=== PATIENT | male | born 1945 | race Caucasian/White ===

== ENCOUNTER 2016-05-17 18:14 | Inpatient (IN) ==
--- NOTE | 2016-05-17 18:48 | Emergency Department Note ---
Disposition Clinical Impression: Chest pain, Trigeminy Disposition: Admitted As Inpatient Condition: Good Referrals: [facility],PCP [Primary Care Provider] - Forms: ED Satisfaction Letter Time of Disposition: 19:54 Chest Pain HPI - General Chief Complaint: ED Chest Pain Stated Complaint: Chest pain from [facility], in trigemony Time Seen by Provider: 05/17/16 18:22 Source: patient, family, EMS Limitations: no limitations Vital Signs Reviewed: Yes Nursing Notes Reviewed: Yes - History of Present Illness HPI Narrative: 71-year-old male presents emergency room for chest pain. Patient stated it started this morning around 4 AM. States he was up getting ready for the day when he had this left-sided chest pain. States it felt like a cramp. Worse as the day went on. Lasted about 30 minutes to 1 hour. Had return of his symptoms this afternoon. Went to the [facility]. Since the ER. They gave him a nitroglycerin patch which seemed to help with his chest pain. He has not had a heart evaluation in 20 years. His chest x-ray at the [facility] showed some possible infiltrates specifically in the right lung zones. He denies any pneumonia symptoms. No cough or sputum production. No smoking history. No fevers. Pt complaint: chest pain Onset (ago): hour(s) Time: 15:00 Duration: intermittent Onset: during rest Pain Location: left chest Severity scale (1-10): 2 Quality: tightness Pain Radiation: none Improves with: nothing Worsens with: nothing Associated symptoms: Denies: nausea, vomiting Treatments prior to arrival chest pain: aspirin, nitroglycerin - Related Data Home Medications Medication Instructions Recorded Confirmed Aspirin 81 mg PO Q48H 05/17/16 05/17/16 Finasteride [Proscar] 5 mg PO DAILY 05/17/16 05/17/16 Fluticasone Propionate Nasal 100 mcg NS BID PRN 05/17/16 05/17/16 [Flonase] Ibuprofen [Motrin] 800 mg PO Q8HR PRN 05/17/16 05/17/16 Lactase [Dairy Relief] 3,000 unit PO TIDAC 05/17/16 05/17/16 Omeprazole [PriLOSEC] 20 mg PO BIDAC 05/17/16 05/17/16 Tamsulosin [Flomax] 0.8 mg PO DAILY 05/17/16 05/17/16 Allergies Allergy/AdvReac Type Severity Reaction Status Date / Time acetaminophen Allergy Anaphylaxis Verified 05/17/16 18:17 Diclofenac Allergy Anaphylaxis Verified 05/17/16 18:17 etodolac Allergy Anaphylaxis Verified 05/17/16 18:17 guaifenesin Allergy Anaphylaxis Verified 05/17/16 18:17 Influenza Virus Vaccines Allergy Anaphylaxis Verified 05/17/16 18:17 lovastatin Allergy Anaphylaxis Verified 05/17/16 18:17 morphine Allergy Anaphylaxis Verified 05/17/16 18:17 simvastatin Allergy Anaphylaxis Verified 05/17/16 18:17 trazodone Allergy Anaphylaxis Verified 05/17/16 18:17 nitequil Allergy Anaphylaxis Uncoded 05/17/16 18:17 All systems ED: reviewed and negative except as stated. Constitutional: Reports: as per HPI Eyes: Reports: as per HPI ENT ED: Reports: as per HPI Cardiovascular: Reports: chest pain Respiratory: Reports: as per HPI Gastrointestinal: Reports: as per HPI Genitourinary: Reports: as per HPI Musculoskeletal: Reports: as per HPI Integumentary: Reports: as per HPI Neurological: Reports: as per HPI Psychiatric: Reports: as per HPI Endocrine: Reports: as per HPI Hematological/Lymphatic: Reports: as per HPI Chest Pain PMH - Past Medical History Medical history: Reports: arthritis, COPD, hyperlipidemia, hypertension, other Psychiatric history: Reports: no psych history - Social History Smoking Status: Former smoker Alcohol use: Reports: none Drug use: Reports: none Physical Exam - General Limitations: no limitations General appearance: alert, in no apparent distress - Head Head exam: atraumatic, normocephalic - Chest Chest inspection: Present: normal inspection, symmetric chest wall rise - Respiratory Respiratory exam: Present: normal lung sounds bilaterally. Absent: respiratory distress - Cardiovascular Cardiovascular exam: Present: regular rate, normal rhythm, normal heart sounds - Abdominal Exam Abdominal exam: Present: soft, Non-Tender, normal bowel sounds - Back Exam Back exam: Present: normal inspection - Neurological Exam Neurological exam: Present: alert, oriented X3 - Psychiatric Psychiatric exam: Present: normal affect - Skin Skin exam: Present: warm, dry Course Vital Signs Temperature 98.1 F 05/17/16 18:17 Pulse Rate 82 05/17/16 18:17 Respiratory Rate 18 05/17/16 18:17 Blood Pressure 121/105 05/17/16 18:17 O2 Sat by Pulse Oximetry 95 05/17/16 18:17 Temperature 98.1 F 05/17/16 18:17 Pulse Rate 75 05/17/16 19:29 Respiratory Rate 18 05/17/16 19:29 Blood Pressure 139/92 05/17/16 19:29 O2 Sat by Pulse Oximetry 94 L 05/17/16 19:29 Oxygen Delivery Oxygen Delivery Room Air Chest Pain - MDM Narrative Medical decision making narrative: Patient will need to be admitted. His EKG shows him to be in trigeminy. His nitroglycerin patch seemed to help his symptoms. He has had no previous cardiac workup in many years. [facility] for [facility] on the right side. Chest x-ray in our emergency room as interpreted by radiology as negative. I spoke with the hospitalist who accepted the patient to her service. - Medical Records Medical records reviewed: Yes I reviewed the patient's medical records. - Lab Data Lab results reviewed: Yes I reviewed the patient's lab results. Result diagrams: 05/17/16 19:22 05/17/16 19:22 Lab Results 05/17/16 05/17/16 Range/Units 19:22 19:22 WBC 6.8 (4.3-11.1) K/mcL RBC 5.04 (4.19-5.50) M/mcL Hgb 15.3 (12.9-16.9) g/dL Hct 45.1 (37.5-50.1) % MCV 89.5 (83.0-100.0) fL MCH 30.4 (28.0-33.3) pg MCHC 33.9 (31.6-35.5) g/dL RDW 12.5 (11.5-14.5) % Plt Count 251 (140-400) K/mcL MPV 9.7 (9.4-12.4) fL Immature Gran % 0.3 (0-4) % Seg Neutrophils % 57.8 % Lymphocytes % 32.2 % Monocytes % 7.1 % Eosinophils % 1.9 % Basophils % 0.7 % Neutrophils # 3.9 (1.6-8.9) K/mcL Lymphocytes # 2.2 (0.6-4.6) K/mcL Monocytes # 0.5 (0.0-1.3) K/mcL Eosinophils # 0.1 (0.0-0.6) K/mcL Basophils # 0.1 (0.0-0.2) K/mcL Immature Plt Fraction 3.1 (1.1-6.1) % Sodium 139 (136-145) mEq/L Potassium 3.9 (3.5-4.5) mEq/L Chloride 105 (98-109) mEq/L Carbon Dioxide 21 (19-29) mEq/L BUN 12 (8-26) mg/dL Creatinine 0.77 (0.72-1.25) mg/dL Est GFR ( Amer) > 60 (> 60) Est GFR (Non-Af Amer) > 60 (> 60) BUN/Creatinine Ratio 16 (6-26) Glucose 109 H (70-99) mg/dL Calculated Osmolality 288 (280-300) Calcium 9.5 (8.6-10.8) mg/dL - Radiology Data Radiology results reviewed: Yes I reviewed the patient's radiology results. - EKG Data EKG attestation: Yes I reviewed and interpreted this EKG. EKG shows normal: sinus rhythm (Trigeminy) Rhythm: PVC's (Trigeminy) [place]/QRS: normal
[2016-05-17] MEDS ORDERED: Fluticasone Propionate Nasal 50 MCG/SPRAY BOTTLE NS PRN (19:26)
[2016-05-17] MEDS ORDERED: Mag Hydrox/Al Hydrox/Simeth 30 ML UDC PO PRN (19:27)
[2016-05-17] MEDS ORDERED: Nitroglycerin 0.4 MG TAB.SUBL SL PRN (19:27)
[2016-05-17] MEDS ORDERED: *HR* Metoprolol 5 MG/5 ML VIAL IVP PRN (19:27)
[2016-05-17] MEDS ORDERED: Nicotine 21 MG PATCH.TD24 TD PRN (19:27)
[2016-05-17] MEDS ORDERED: *HR* OxyCODONE Immed Rel 5 MG TABLET PO PRN (19:27)
[2016-05-17] MEDS ORDERED: Pantoprazole 40 MG VIAL IVP STA (19:27)
[2016-05-17] MEDS ORDERED: Ondansetron 4 MG/2 ML VIAL IVP PRN (19:27)
[2016-05-17] MEDS ORDERED: Naloxone 0.4 MG/ML INJ IVP PRN (19:27)
[2016-05-17] MEDS ORDERED: *HR* HYDROmorphone (PF) 1 MG/ML SYRINGE IVP PRN (19:27)
[2016-05-17] MEDS ORDERED: *HR* Enoxaparin 40 MG/0.4 ML SYRINGE SQ STA (19:27)
[2016-05-17] MEDS ORDERED: Aspirin 81 MG TAB.CHEW PO SCH (19:30)
[2016-05-17] MEDS ORDERED: 0.9 % Sodium Chloride 1,000 ML IVC SCH (19:30)
[2016-05-17 19:31] LABS: Basophils # 0.1 K/mcL (0.0-0.2); Basophils % 0.7 %; Eosinophils # 0.1 K/mcL (0.0-0.6); Eosinophils % 1.9 %; Hematocrit 45.1 % (37.5-50.1); Hemoglobin 15.3 g/dL (12.9-16.9); Immature Granulocytes % 0.3 % (0-4); Immature Platelets 3.1 % (1.1-6.1); Lymphocytes # 2.2 K/mcL (0.6-4.6); Lymphocytes % 32.2 %; Mean Corpuscular HGB Conc 33.9 g/dL (31.6-35.5); Mean Corpuscular Hemoglobin 30.4 pg (28.0-33.3); Mean Corpuscular Volume 89.5 fL (83.0-100.0); Mean Platelet Volume 9.7 fL (9.4-12.4); Monocytes # 0.5 K/mcL (0.0-1.3); Monocytes % 7.1 %; Neutrophils # 3.9 K/mcL (1.6-8.9); Platelet Count 251 K/mcL (140-400); Red Blood Count 5.04 M/mcL (4.19-5.50); Red Cell Distribution Width 12.5 % (11.5-14.5); Segmented Neutrophils % 57.8 %
[2016-05-17 19:46] LABS: BUN/Creatinine Ratio 16 (6-26); Blood Urea Nitrogen 12 mg/dL (8-26); Calcium 9.5 mg/dL (8.6-10.8); Carbon Dioxide 21 mEq/L (19-29); Chloride 105 mEq/L (98-109); Glucose 109 mg/dL (70-99); Osmolality,Calculated 288 (280-300); Potassium 3.9 mEq/L (3.5-4.5); Sodium 139 mEq/L (136-145); eGFR For African Americans > 60 (> 60); eGFR For Non-African Americans > 60 (> 60)
[2016-05-17] MEDS ORDERED: Ibuprofen 800 MG TABLET PO ONE (19:46)
[2016-05-17] MEDS ORDERED: Ipratropium/Albuterol Neb 3 ML IH PRN (19:48)
[2016-05-17] MEDS ORDERED: Benzonatate 100 MG CAPSULE PO PRN (19:48)
--- NOTE | 2016-05-17 19:57 | Internal Med History&Physical ---
Date of Encounter: 05/17/16 Time of Encounter: 20:00 Assessment and Plan (1) Chest pain, rule out acute myocardial infarction Status: Acute . (2) Chest pain with low risk of acute coronary syndrome Status: Acute . (3) Acute chest wall pain Status: Acute . (4) Trigeminy Status: Acute . (5) COPD (chronic obstructive pulmonary disease) Status: Chronic . Qualifiers: COPD type: unspecified COPD Qualified Code(s): J44.9 - Chronic obstructive pulmonary disease, unspecified (6) Chronic respiratory failure with hypoxia Status: Chronic . (7) Former heavy cigarette smoker (20-39 per day) Status: Chronic . (8) Obesity (BMI 30-39.9) Status: Chronic . (9) Allergy to statin medication Status: Chronic . (10) History of drug-induced anaphylaxis Status: Chronic . (11) Dyslipidemia Status: Chronic . (12) HTN (hypertension) Status: Chronic . Qualifiers: Hypertension type: essential hypertension Qualified Code(s): I10 - Essential (primary) hypertension (13) Pulmonary infiltrates Status: Chronic . Internal Medicine - H&P: HPI Chief complaint: Chest pain Admitted From: Hospital to Hospital Transfer (Hospital transfer [facility] ED to [facility] ED) Plans for Post Hospital Care: Home History of present illness: Mr. Rankin is a 71 year old male [facility] patient with significant medical history for COPD, hypertension, dyslipidemia, osteoarthritis, cervical spondylosis, hearing loss, DDD lumbosacral spine/sciatica, BPH/prostatism, ED, lactase intolerance, allergic rhinitis, GERD, H/O statin allergy, H/O drug-induced anaphylactic reactions, obesity, YELITZA, former heavy smoker. The patient was visited and interviewed and examined. Patient is admitted to a [facility] transferred via EMS from [facility] urgent care center where he presented with complaints of chest pain and found to be in trigeminy. He reports onset of chest discomfort beginning at about 4 AM the morning of admission. He was getting ready for his day when he began to experience left-sided chest discomfort. Sharp and cramping worsening as day progressed. Lasted for 30 minutes to an hour at a time returning later in the afternoon which she took him to the [facility] initially for evaluation. There he received sublingual nitroglycerin and 4 baby aspirin which seemed to help lessen the severity of his chest pain but not resolve completely. Initial troponin 0.00. Vital signs stable (BP 162/71 pulse 85 resp 18 O2sat 99% at 2L/min. Nitro paste applied to chest prior to transfer. Rated at 2-3/10 upon [facility] ED arrival. Beside sublingual nitroglycerin nothing seemed to improve or worsened symptoms when present. Findings in the ED temperature 98.1 pulse 82 respirations 18 BP 121/105. O2 saturation 94% on nasal cannula. EKG demonstrated first-degree AV block with frequent ventricular premature complexes. Q wave in lead 3 and aVF suggested date indeterminant inferior wall injury. Ventricular rate controlled 79 bpm. PVCs presented a trigeminy pattern. No acute ischemic changes demonstrated. ( [facility] portable chest x-ray demonstrated borderline heart size. Minimal basal, right mid lung opacities, probable atelectasis. Pneumonitis cannot be excluded.. Metabolic panel normal. Magnesium 2.5. Hepatic function normal. Troponin 0.00 CPK 267. WBC 7.6 hemoglobin 15.5 platelet 250,000. Differential normal. PT 10.9 INR 1.1 PTT 24.) Preliminary impressions suggest acute chest pain syndrome typical and atypical features. Complicated by acute cardiac arrhythmia with frequent premature ventricular complexes producing trigeminy. Age-indeterminate old inferior wall injury noted. Patient does present risk for further acute clinical decline and morbidity given this presenting chief complaint, clinical findings and comorbidities. Workup and treatment will proceed comprehensively. Cumulative laboratory and radiographic data base was reviewed, considered and discussed. Pertinent ancillary medical records including ECW and PCI documentation was reviewed and considered. Given the patient's presenting concerns, past medical history, clinical findings and symptoms, he is admitted at this time will undergo further evaluation and disposition. Orders were written as per the computerized physician bordereau clerk system.......................................................................... .................... Consultative opinion and will be sought as clinical circumstances justify. Initial consultation requested of cardiology. Pain management needs will be addressed. Laboratory and radiographic data base will be updated as appropriate. Studies include: Cultures of blood sputum, CPK, Ddimer, PT/INR/APTT, cardiac injury panel, BNP, metabolic and hematologic panel, magnesium, phosphorus, ionized calcium, thyroid panel, lipid profile, A1c, C-peptide, CRP, sed rate, respiratory infection profile, respiratory virus panel, UA, UDS, blood gas, lactic acid, serologies, etc. Precautions: Aspiration, fall, delirium protocol/surveillance initiated. Telemetry with continuous hemodynamic monitoring and pulse oximetry initiated. Empiric antibiotic coverage: pending culture/diagnostic data. Special studies: CT chest, chest x-ray, telemetry, EKG, echocardiogram. Lexiscan myocardial perfusion NM stress test versus LHC at discretion of cardiology pending review of screening studies. Pulmonary toilet: Incentive spirometry, aerosol bronchodilator, mucolytic, antitussive, supplemental oxygen. Corticosteroid therapyPRN. CPAP/BiPAP supplemental oxygen deliveryPRN. Aerosol Mucomyst therapyPRN. Fluid and electrolyte repletion efforts will proceed. Careful attention to fluid balance and renal recovery will be emphasized. Avoidance of nephrotoxic exposure and adverse drug drug interaction in the setting of impaired renal function will be monitored closely. Acute coronary syndrome protocol/surveillance initiated. Aspirin, fenofibrate, ABEL inhibitor, Lovenox. Beta BlockerPRN. NitratesPRN. MorphinePRN. Supplemental oxygen. Statin withheld due to reported allergy. DVT and PUD prophylaxis initiated: PPI therapy, intermittent pneumatic cuffs/ TEDs. SQ heparin/Lovenox. Early ambulation will be encouraged. Immunization updates recommended. Influenza and pneumococcal vaccinations as part of ongoing preventative healthcare recommendations strongly recommended. Smoking cessation counseling briefly addressed. Patient is a former smoker. Advanced care directive discussion briefly addressed. Patient does not declare any healthcare restrictions at this time. Cardiovascular risk appraisal and cardiovascular risk reduction efforts will be emphasized. Physical and occupational therapy may be consulted to assess patient's functional capacity and progress mobility if circumstances justify. Nutrition/dietary education counseling may be considered as circumstances justify. Outpatient medication schedules will be reviewed, confirmed and facilitated as appropriate. Reconciliation of home treatments including adjustments, substitutions and reintroduction into the treatment regimen will address necessary maintenance therapies for chronic pre-existing medical conditions. Plan of care has been reviewed and discussed in detail with the patient. Questions addressed. Hospital course will be dependent upon clinical findings, treatment response and potential consultative interventions. Patient is at risk for further acute clinical decline and morbidity due to presenting chief complaints, findings and comorbid conditions. Condition is serious. Prognosis is guarded. CODE STATUS is full. Past Med Surg Social Fam HX - Past Medical History Source: old records reviewed Medical history: arthritis (Degenerative disc disease of the spine. Cervicalgia. Sciatica. Application of upper extremity below elbow.), COPD ( Hypersomnia with sleep apnea.), GERD (Lactase intolerance.), hyperlipidemia, hypertension, osteoporosis, renal disease (BPH/prostatism. Erectile dysfunction.), other (Allergic rhinitis. Seborrheic keratosis. Bilateral hearing loss.) Psychiatric history: no psych history - Past Surgical History Surgical History: non-contributory, orthopedic, other (Left upper extremity amputation. ), other - Social History Smoking Status: Former smoker Smokeless Tobacco Status: No Alcohol use: none Drug use: none Occupational status: unemployed, retired, disabled Current living situation: Home - Independent, With Family Activity Level: Independent ambulation, Mostly sedentary Recent Out of Country Travel Within the Last 8 Weeks: No Exposure or Possible Exposure to Illness During Travel: No - Family History Mother Living Status: Cause of : heart disease Hx Family Cardiac Disorders: Yes Brother Living Status: Still Living Hx Family Cardiac Disorders: Yes Sister Living Status: Age at : 60 Hx Family Cancer: Yes Internal Medicine - H&P: Meds Aspirin 81 mg PO Q48H 05/17/16 [History] Finasteride [Proscar] 5 mg PO DAILY 05/17/16 [History] Fluticasone Propionate Nasal [Flonase] 100 mcg NS BID PRN 05/17/16 [History] Ibuprofen [Motrin] 800 mg PO Q8HR PRN 05/17/16 [History] Lactase [Dairy Relief] 3,000 unit PO TIDAC 05/17/16 [History] Omeprazole [PriLOSEC] 20 mg PO BIDAC 05/17/16 [History] Tamsulosin [Flomax] 0.8 mg PO DAILY 05/17/16 [History] Losartan [Cozaar] 25 mg PO DAILY #30 tablet 05/18/16 [Rx] Allergies acetaminophen Allergy (Verified 05/17/16 18:17) Anaphylaxis Diclofenac Allergy (Verified 05/17/16 18:17) Anaphylaxis etodolac Allergy (Verified 05/17/16 18:17) Anaphylaxis guaifenesin Allergy (Verified 05/17/16 18:17) Anaphylaxis Influenza Virus Vaccines Allergy (Verified 05/17/16 18:17) Anaphylaxis lovastatin Allergy (Verified 05/17/16 18:17) Anaphylaxis morphine Allergy (Verified 05/17/16 18:17) Anaphylaxis simvastatin Allergy (Verified 05/17/16 18:17) Anaphylaxis trazodone Allergy (Verified 05/17/16 18:17) Anaphylaxis nitequil Allergy (Uncoded 05/17/16 18:17) Anaphylaxis All Systems PM: A 10-system review of systems was performed and is negative for pertinent findings except as documented above in the HPI. - Constitutional Constitutional: as per HPI, no chills, no fever(s), no night sweats - EENT Eyes: as per HPI, no change in vision, no discharge, no pain, no photophobia Ears: as per HPI, no ear discharge, no ear pain, no tinnitus Nose, mouth and throat: as per HPI, no dysphagia, no nasal discharge, no neck pain, no sore throat - Cardiovascular Cardiovascular ROS IM: as per HPI, chest pain, irregular heart rhythm, lightheadedness, other, no diaphoresis, no dyspnea, no palpitations, no syncope - Respiratory Respiratory: as per HPI, no cough, no dyspnea, no wheezing, no excessive phlegm production - Gastrointestinal Gastrointestinal: as per HPI, no abdominal pain, no diarrhea, no hematemesis, no hematochezia, no melena, no nausea, no vomiting - Genitourinary Genitourinary ROS male: as per HPI - Musculoskeletal Musculoskeletal ROS IM: as per HPI, no numbness, no tingling - Integumentary Integumentary IM: as per HPI, no rash, no unusual bruising - Neurological Neurological ROS: as per HPI, no confusion, no convulsions, no focal weakness, no numbness, no tingling, no tremor(s) - Psychiatric Psychiatric: as per HPI - Endocrine Endocrine IM: as per HPI - Hematologic/Lymphatic Hematologic/Lymphatic: as per HPI, no easy bruising - Allergic/Immunologic Allergic/Immunologic: as per HPI, other - Constitutional Vitals: Temp Pulse Resp BP Pulse Ox 98.1 F 75 18 139/92 94 L 05/17/16 18:17 05/17/16 19:29 05/17/16 19:29 05/17/16 19:29 05/17/16 19:29 General appearance: Present: cooperative, mild distress, A&O X 3, obese, answers questions appropriately - Head Head exam: Present: atraumatic, normal inspection, normocephalic - Eye Eye exam: Present: EOMI, PERRL, conjuntiva pink, sclera anicteric Pupils: Present: normal accommodation, PERRL - ENT ENT exam: Present: mucous membranes moist, normal external ear exam, normal oropharynx - Neck Neck exam general surgery: Present: full ROM, supple, trachea midline. Absent: lymphadenopathy, tenderness, nuchal rigidity - Respiratory Respiratory exam: Present: decreased breath sounds, rhonchi. Absent: accessory muscle use, rales, wheezes - Cardiovascular Cardiovascular exam: Present: distant heart sounds, RRR, +S1, +S2. Absent: diastolic murmur, gallop, rubs, systolic murmur - GI/Abdominal GI/Abdominal exam: Present: normal bowel sounds, soft, no peritoneal signs. Absent: distended, tenderness - Extremities Exam Extremities exam: Present: full ROM, warm, radial pulses palpable and symetrical. Absent: calf tenderness, cyanotic, pedal edema - Neurological Exam Neurological exam: Present: alert, CN II-XII intact, oriented X3, no focal deficits. Absent: pronater drift, facial droop, speech deficit - Psychiatric Psychiatric exam: Present: normal affect, normal mood - Skin Skin exam: Present: dry, intact, warm. Absent: petechiae, rash, urticaria, vesicles Internal Med - H&P Results - Labs CBC & Chem 7: 05/18/16 01:11 05/18/16 01:11 Labs: Short CBC 05/17/16 Range/Units 19:22 WBC 6.8 (4.3-11.1) K/mcL Hgb 15.3 (12.9-16.9) g/dL Hct 45.1 (37.5-50.1) % Plt Count 251 (140-400) K/mcL Neutrophils # 3.9 (1.6-8.9) K/mcL BMP 05/17/16 19:22 Sodium 139 Potassium 3.9 Chloride 105 Carbon Dioxide 21 BUN 12 Creatinine 0.77 Glucose 109 H Calcium 9.5 - Impressions ITS Impressions Chest X-Ray 05/17/16 18:46 IMPRESSION: No acute process. D/ / Marco Cruz MD / Marco Cruz MD Interpreting Provider: Marco Cruz MD Vital Signs Temp Pulse Resp BP Pulse Ox 05/17/16 19:29 75 18 139/92 94 L 05/17/16 18:59 77 20 150/74 95 05/17/16 18:29 94 L 05/17/16 18:17 98.1 F 82 18 121/105 95 Intake and Output 05/17/16 05/17/16 05/17/16 07:59 15:59 23:59 Other: Weight 90.718 kg Patient Weight 05/17/16 23:59 Weight 90.718 kg Short CBC 05/17/16 Range/Units 19:22 WBC 6.8 (4.3-11.1) K/mcL Hgb 15.3 (12.9-16.9) g/dL Hct 45.1 (37.5-50.1) % Plt Count 251 (140-400) K/mcL Neutrophils # 3.9 (1.6-8.9) K/mcL BMP 05/17/16 Range/Units 19:22 Sodium 139 (136-145) mEq/L Potassium 3.9 (3.5-4.5) mEq/L Chloride 105 (98-109) mEq/L Carbon Dioxide 21 (19-29) mEq/L BUN 12 (8-26) mg/dL Creatinine 0.77 (0.72-1.25) mg/dL Glucose 109 H (70-99) mg/dL Calcium 9.5 (8.6-10.8) mg/dL Cardiac Enzymes 05/17/16 Range/Units 19:22 Troponin I 0.00 (0-0.03) ng/mL Abnormal lab results Glucose 109 mg/dL (70-99) H 05/17/16 19:22 Allergies Allergy/AdvReac Type Severity Reaction Status Date / Time acetaminophen Allergy Anaphylaxis Verified 05/17/16 18:17 Diclofenac Allergy Anaphylaxis Verified 05/17/16 18:17 etodolac Allergy Anaphylaxis Verified 05/17/16 18:17 guaifenesin Allergy Anaphylaxis Verified 05/17/16 18:17 Influenza Virus Vaccines Allergy Anaphylaxis Verified 05/17/16 18:17 lovastatin Allergy Anaphylaxis Verified 05/17/16 18:17 morphine Allergy Anaphylaxis Verified 05/17/16 18:17 simvastatin Allergy Anaphylaxis Verified 05/17/16 18:17 trazodone Allergy Anaphylaxis Verified 05/17/16 18:17 nitequil Allergy Anaphylaxis Uncoded 05/17/16 18:17 Laboratory Last Values WBC 6.8 K/mcL (4.3-11.1) 05/17/16 19:22 RBC 5.04 M/mcL (4.19-5.50) 05/17/16 19:22 Hgb 15.3 g/dL (12.9-16.9) 05/17/16 19:22 Hct 45.1 % (37.5-50.1) 05/17/16 19:22 MCV 89.5 fL (83.0-100.0) 05/17/16 19:22 MCH 30.4 pg (28.0-33.3) 05/17/16 19:22 MCHC 33.9 g/dL (31.6-35.5) 05/17/16 19:22 RDW 12.5 % (11.5-14.5) 05/17/16 19:22 Plt Count 251 K/mcL (140-400) 05/17/16 19:22 MPV 9.7 fL (9.4-12.4) 05/17/16 19:22 Immature Gran % 0.3 % (0-4) 05/17/16 19:22 Seg Neutrophils % 57.8 % 05/17/16 19:22 Lymphocytes % 32.2 % 05/17/16 19:22 Monocytes % 7.1 % 05/17/16 19:22 Eosinophils % 1.9 % 05/17/16 19:22 Basophils % 0.7 % 05/17/16 19:22 Neutrophils # 3.9 K/mcL (1.6-8.9) 05/17/16 19:22 Lymphocytes # 2.2 K/mcL (0.6-4.6) 05/17/16 19:22 Monocytes # 0.5 K/mcL (0.0-1.3) 05/17/16 19:22 Eosinophils # 0.1 K/mcL (0.0-0.6) 05/17/16 19:22 Basophils # 0.1 K/mcL (0.0-0.2) 05/17/16 19:22 Immature Plt Fraction 3.1 % (1.1-6.1) 05/17/16 19:22 Sodium 139 mEq/L (136-145) 05/17/16 19:22 Potassium 3.9 mEq/L (3.5-4.5) 05/17/16 19:22 Chloride 105 mEq/L (98-109) 05/17/16 19:22 Carbon Dioxide 21 mEq/L (19-29) 05/17/16 19:22 BUN 12 mg/dL (8-26) 05/17/16 19:22 Creatinine 0.77 mg/dL (0.72-1.25) 05/17/16 19:22 Est GFR ( Amer) > 60 (> 60) 05/17/16 19:22 Est GFR (Non-Af Amer) > 60 (> 60) 05/17/16 19:22 BUN/Creatinine Ratio 16 (6-26) 05/17/16 19:22 Glucose 109 mg/dL (70-99) H 05/17/16 19:22 Calculated Osmolality 288 (280-300) 05/17/16 19:22 Calcium 9.5 mg/dL (8.6-10.8) 05/17/16 19:22 Troponin I 0.00 ng/mL (0-0.03) 05/17/16 19:22 Chest X-Ray 05/17/16 18:46 IMPRESSION: No acute process. D/ / Marco Cruz MD / Marco Cruz MD Interpreting Provider: Marco Cruz MD Chest CT 05/17/16 19:46 IMPRESSION: 1. No acute cardiopulmonary abnormality. 2. Scattered coronary artery calcifications. 3. Chronic calcified granulomatous changes. 4. Diffuse hepatic steatosis. D/ / Herbert Goodwin MD / Herbert Goodwin MD Interpreting Provider: Herbert Goodwin MD
[2016-05-17 20:26] LABS: Bilirubin,Urine Negative (Negative); Blood,Urine Negative (Negative); Clarity,Urine Clear (Clear); Color,Urine Yellow (Yellow); Glucose,Urine (UA) Normal (Normal); Ketones,Urine Negative (Negative); Leukocyte Esterase,Urine Negative (Negative); Nitrite,Urine Negative (Negative); PH,Urine 6.5 pH Units (5.0-8.0); Protein,Urine Negative (Neg-Trace); Urobilinogen,Urine Normal (Normal)
[2016-05-17 20:32] LABS: Amphetamine Screen,Urine Negative ng/mL (Cutoff=1000); Barbiturate Screen,Urine Negative ng/mL (Cutoff=200); Benzodiazepines Screen,Urine Negative ng/mL (Cutoff=200); Cannabinoid Screen,Urine Negative ng/mL (Cutoff = 50); Cocaine Screen,Urine Negative ng/mL (Cutoff= 300); Opiate Screen,Urine Negative ng/mL (Cutoff=300); Phencyclidine Screen,Urine Negative ng/mL (Cutoff=25)
[2016-05-17 20:56] LABS: VBG HCO3 27.9 mEq/L (21-27); VBG PH 7.42 pH Units (7.32-7.42)
[2016-05-17] MEDS ORDERED: Melatonin 3 MG TABLET PO SCH (21:00)
[2016-05-17 21:04] LABS: Ionized Calcium 1.18 mmol/L (1.15-1.35)
[2016-05-17 21:08] LABS: Magnesium 2.2 mg/dL (1.6-2.6); Phosphorous 4.2 mg/dL (2.3-4.7)
[2016-05-17 21:10] LABS: Albumin 3.9 g/dL (3.5-5.0); Albumin/Globulin Ratio 1.3 (1.1-2.2); Bilirubin,Direct 0.3 mg/dL (0.0-0.5); Bilirubin,Indirect 0.6 mg/dL (0.0-1.2); Bilirubin,Total 0.9 mg/dL (0.2-1.2); Globulin 2.9 g/dL (2.4-3.5); Total Protein 6.8 g/dL (6.0-8.3)
[2016-05-18 01:33] LABS: Hematocrit 42.5 % (37.5-50.1); Hemoglobin 14.3 g/dL (12.9-16.9); Mean Corpuscular HGB Conc 33.6 g/dL (31.6-35.5); Mean Corpuscular Volume 89.1 fL (83.0-100.0); Mean Platelet Volume 9.8 fL (9.4-12.4); Platelet Count 226 K/mcL (140-400); Red Blood Count 4.77 M/mcL (4.19-5.50); Red Cell Distribution Width 12.5 % (11.5-14.5)
[2016-05-18 01:37] LABS: INR 1.2; Prothrombin Time 12.8 Seconds (9.4-12.1)
[2016-05-18 01:40] LABS: Activated Partial Thrombo Time 30.8 Seconds (26.0-36.0)
[2016-05-18 01:53] LABS: Alanine Aminotransferase 19 Units/L (0-55); Albumin 3.7 g/dL (3.5-5.0); Albumin/Globulin Ratio 1.3 (1.1-2.2); Alkaline Phosphatase 66 Units/L (38-126); Aspartate Amino Transferase 19 Units/L (5-34); BUN/Creatinine Ratio 17 (6-26); Blood Urea Nitrogen 15 mg/dL (8-26); Calcium 9.3 mg/dL (8.6-10.8); Carbon Dioxide 22 mEq/L (19-29); Chloride 104 mEq/L (98-109); Cholesterol 180 mg/dL (< 200); Globulin 2.9 g/dL (2.4-3.5); Glucose 115 mg/dL (70-99); HDL Cholesterol 36 mg/dL (40-59); LDL Cholesterol,Calculated 121 mg/dL (0-99); Osmolality,Calculated 286 (280-300); Potassium 4.1 mEq/L (3.5-4.5); Sodium 137 mEq/L (136-145); Total Protein 6.6 g/dL (6.0-8.3); Triglycerides 116 mg/dL (< 150); eGFR For African Americans > 60 (> 60); eGFR For Non-African Americans > 60 (> 60)
[2016-05-18 02:09] LABS: Hemoglobin A1C 5.6 %
[2016-05-18 02:37] LABS: Thyroid Stimulating Hormone 1.143 mcIU/mL (0.350-4.840)
[2016-05-18] MEDS ORDERED: *HR* Enoxaparin 40 MG/0.4 ML SYRINGE SQ SCH (06:00)
[2016-05-18] MEDS ORDERED: Finasteride 5 MG TABLET PO SCH (09:00)
[2016-05-18] MEDS ORDERED: Regadenoson 0.4 MG/5 ML SYRINGE IVP ONE (10:05)
--- NOTE | 2016-05-18 10:08 | Cardiology Consult Note ---
Addendum entered and electronically signed by Herbert Mejía DO 05/18/16 13:58: ADDENDUM: - ECHO reviewed, revealed EF 55-60% with normal LV chamber size/function, mild concentric LVH, normal right ventricular structure/function, mild diastolic dysfunction, without pulm hypertension or significant valvular dysfunction - Nuclear stress test reviewed, revealed EF 55% perfusion imaging was negative for ischemia or infarct - would recommend observation and return precautions regarding trigeminy, would not recommend treatment at this time with BB as he has underlying 1st degree AV block HR 60s and asymptomatic - recommend follow up with [facility] will sign off, thank you for involving us in his care. Original Note: <Herbert Mejía - Last Filed: 05/18/16 11:14> Date of Encounter: 05/18/16 Time of Encounter: 10:06 Assessment and Plan (1) Chest pain Current Visit: Yes Status: Acute - chest pain at rest lasting 30 minutes, no history of such - history of hypertension and hyperlipidemia and remote history of cardiac ischemic disease (1988) - troponin negative x3 - ECHO and stress test ordered - no old [facility] [place] studies - further recommendations pending stress test results Qualifiers: Chest pain type: unspecified Qualified Code(s): R07.9 - Chest pain, unspecified (2) Trigeminy Current Visit: Yes Status: Acute - currently sinus rhythm with 1st degree AV block on rhythm strip last night - EKG in ED and at [facility] revealed 1st AV block and trigeminy - denies any palpitations, lightheadedness, or syncope - continue compliance monitor - hemodynamically stable, HR 60s would not recommend treating trigeminy unless symptomatic and may not be appropriate with beta darya - ECHO and stress test results pending (3) Dyslipidemia Current Visit: Yes Status: Chronic . (4) Allergy to statin medication Current Visit: Yes Status: Chronic . Discussion w patient/family: The assessment and plan as outlined above was discussed with the patient and/or family members who expressed understanding and agreement. All questions were answered. Thank you for involving us in the care of your patient. Please call with any questions. History of Present Illness Consult date: 05/18/16 Requesting physician: Gerardo Mccullough Consult reason: CP R/O ACS, Trigeminy Chief complaint: CP History of present illness: Mr. Rankin is a 71 year old male with past medical history of hypertension, hyperlipidemia, and former smoker presents to the [place] as a transfer from the [place]. Reports sharp sudden chest pain around 0430 while getting dressed. Pain located in the left anterior chest wall with radiation to the lateral wall, denies any associated diaphoresis, shortness of breath, palpitations, lightheadedness, nausea, or vomiting. Pain lasted 30 minutes after taking 4 baby aspirins. No history of such pain before. Reportedly given nitro paste and brought the pain down to a 2/10. Reports history of cardiac ischemic disease with last known LHC around 1988 he reports at the [place]. Denies any recent ECHO or stress tests in the last several years. Was recently taken off his antihypertensive medications a year ago as his BP was low. EKG reviewed demonstrating 1st degree AV block and trigeminy. Q waves in the inferior leads. CXR is unremarkable. CT of chest reveals calcified coronary arteries. Troponin is negative x3. Denies history of atrial fibrillation or arrhythmia. Denies use of anticoagulants. Currently is chest pain free. Past Med Surg Social Fam HX - Past Medical History Medical history: arthritis (Degenerative disc disease of the spine. Cervicalgia. Sciatica. Application of upper extremity below elbow.), COPD ( Hypersomnia with sleep apnea.), GERD (Lactase intolerance.), hyperlipidemia, hypertension, osteoporosis, renal disease (BPH/prostatism. Erectile dysfunction.), other (Allergic rhinitis. Seborrheic keratosis. Bilateral hearing loss.) Psychiatric history: no psych history - Past Surgical History Surgical History: non-contributory, orthopedic, other (Left upper extremity amputation. ), other - Social History Smoking Status: Former smoker Smokeless Tobacco Status: No Alcohol use: none Drug use: none - Family History Mother Living Status: Cause of : heart disease Hx Family Cardiac Disorders: Yes Brother Living Status: Still Living Hx Family Cardiac Disorders: Yes Sister Living Status: Age at : 60 Hx Family Cancer: Yes Medications and Allergies Aspirin 81 mg PO Q48H 05/17/16 [History] Finasteride [Proscar] 5 mg PO DAILY 05/17/16 [History] Fluticasone Propionate Nasal [Flonase] 100 mcg NS BID PRN 05/17/16 [History] Ibuprofen [Motrin] 800 mg PO Q8HR PRN 05/17/16 [History] Lactase [Dairy Relief] 3,000 unit PO TIDAC 05/17/16 [History] Omeprazole [PriLOSEC] 20 mg PO BIDAC 05/17/16 [History] Tamsulosin [Flomax] 0.8 mg PO DAILY 05/17/16 [History] Allergies acetaminophen Allergy (Verified 05/17/16 18:17) Anaphylaxis Diclofenac Allergy (Verified 05/17/16 18:17) Anaphylaxis etodolac Allergy (Verified 05/17/16 18:17) Anaphylaxis guaifenesin Allergy (Verified 05/17/16 18:17) Anaphylaxis Influenza Virus Vaccines Allergy (Verified 05/17/16 18:17) Anaphylaxis lovastatin Allergy (Verified 05/17/16 18:17) Anaphylaxis morphine Allergy (Verified 05/17/16 18:17) Anaphylaxis simvastatin Allergy (Verified 05/17/16 18:17) Anaphylaxis trazodone Allergy (Verified 05/17/16 18:17) Anaphylaxis nitequil Allergy (Uncoded 05/17/16 18:17) Anaphylaxis All Systems Review: A 10-system review of systems was performed and is negative for pertinent findings except as documented above in the HPI. - Constitutional Constitutional: no fatigue, no fever(s), no headache(s), no weakness - Cardiovascular Cardiovascular: chest pain at rest, no chest pain with exertion, no claudication , no diaphoresis, no dyspnea at rest, no dyspnea on exertion, no irregular heart rhythm, no lightheadedness, no palpitations, no syncope - Respiratory Respiratory: cough, no dyspnea, no hemoptysis Physical Examination Vital Signs, Last 4 Hours Temp Pulse Resp BP Pulse Ox 05/18/16 07:19 97.8 F 62 16 135/82 95 General: Conversant, No Apparent Distress HEENT: Atraumatic, Normocephaly, Mucus Membranes Moist Neck: No JVD, Normal carotid pulses Cardiac: Reg Rate and Rhythm, Normal S1 and S2, No Murmur Lungs: Normal Breath Sounds, No Wheeze, Rales, Rhonchi Neuro: Alert and responsive, No focal deficits noted Abdomen: Soft, Non-Tender Skin: No rashes noted on visualized skin Musculoskeletal: No Chest Wall Tenderness Extremities: No Clubbing, No Cyanosis, No Edema, Normal Pulses Results 05/18/16 01:11 05/18/16 01:11 Lab Results 05/18/16 05/18/16 05/18/16 01:11 01:11 01:11 WBC 6.4 Hgb 14.3 Hct 42.5 Plt Count 226 INR 1.2 APTT 30.8 Sodium Potassium Chloride Carbon Dioxide BUN Creatinine Glucose Calcium Total Bilirubin AST ALT Alkaline Phosphatase Troponin I 0.00 TSH 05/18/16 01:11 WBC Hgb Hct Plt Count INR APTT Sodium 137 Potassium 4.1 Chloride 104 Carbon Dioxide 22 BUN 15 Creatinine 0.88 Glucose 115 H Calcium 9.3 Total Bilirubin 1.0 AST 19 ALT 19 Alkaline Phosphatase 66 Troponin I TSH 1.143 - EKG Interpretation EKG results cardiology: personally reviewed, normal ECG, sinus rhythm, no diagnostic ischemia, other (1st degree AV block with Trigeminy) Consult Discharge Plan - Plan [facility]errals: [facility] Care Provider[facility] - <Kurt Luz - Last Filed: 05/18/16 14:18> Date of Encounter: 05/18/16 Assessment and Plan Discussion w patient/family: The assessment and plan as outlined above was discussed with the patient and/or family members who expressed understanding and agreement. All questions were answered. Thank you for involving us in the care of your patient. Please call with any questions. History of Present Illness History of present illness: Mr. Rankin is a 71 year old male All Systems Review: A 10-system review of systems was performed and is negative for pertinent findings except as documented above in the HPI. Results 05/18/16 01:11 05/18/16 01:11 Lab Results 05/18/16 05/18/16 05/18/16 01:11 01:11 01:11 WBC 6.4 Hgb 14.3 Hct 42.5 Plt Count 226 INR 1.2 APTT 30.8 Sodium Potassium Chloride Carbon Dioxide BUN Creatinine Glucose Calcium Total Bilirubin AST ALT Alkaline Phosphatase Troponin I 0.00 TSH 05/18/16 01:11 WBC Hgb Hct Plt Count INR APTT Sodium 137 Potassium 4.1 Chloride 104 Carbon Dioxide 22 BUN 15 Creatinine 0.88 Glucose 115 H Calcium 9.3 Total Bilirubin 1.0 AST 19 ALT 19 Alkaline Phosphatase 66 Troponin I TSH 1.143 - Attending Attestation For this encounter, I have reviewed the VOCATIONAL REHABILITATION SPECIALIST or PA documentation, treatment plan, and medical decision making; and I have had face to face time with this patient. See details as per resident note CP is atypical, left sided sharp no associated symptoms VSS JVD: 6 Chest : Clear CVS: RRR , no murmur EKG: no acute changes Enzymes neg plan; GXT if neg can go home from a CV standpoint. Thanks !
[2016-05-18] MEDS: (Lactase [Dairy Relief] 3,000 UNIT) PO SCH ×3 (12:13→15:22)
--- NOTE | 2016-05-18 12:37 | Nuclear Medicine Stress Report ---
Regadenoson Nuclear Stress Name: Juanjo Rankin Date of Study: 05/18/2016 Date: 1945 Ht: 65.0 in Medical Record#: [id number] Age: 71 Wt: 200.0 lb Gender: Male Order #: [id number] Location: [facility] Room: [facility] Supervising Provider: Rikki Murcia CNP Reading Physician: Jeffrey Holguin DO, CELESTINO DAVIDSON FASNC Ordering Physician: Marleni Munguia CNP Primary Care Physician: [facility] Stress Technologist: Precious Capone, ASHLEE Towel Inspector: Graham Castaneda Indications: Chest Pain Impression: Pharmacologic stress ECG is negative for ischemia at level of heart rate achieved. Gated EF = 53%. Small sized, moderate intensity, fixed apex, apical inferior, apical lateral, and apical septal defect consistent with artifact. Perfusion imaging was negative for ischemia or infarct. History: Hypertension Stress Test Summary: Stress Test Type: Pharmacologic Regadenoson 0.4mg/5ml given IV Baseline Information: Initial Heart Rate: 71 Blood Pressure: 138/88 Stress Information: Test Terminated Due to (primary): As per protocol Maximum Blood Pressure: 150/84 Maximum Heart Rate: 100 Percent Maximum Heart Rate Achieved: 66 Double Product: [id number] METS Reached: 1 Symptoms: Chest pain Nuclear Summary: SPECT myocardial perfusion imaging using Tc99m Sestamibi given intravenously was performed at rest and following cardiac stress testing. The resting images were obtained following initial dose of 10.4 mCi. Following stress an additional dose of 33 mCi was given at peak exercise or 30 seconds post regadenoson infusion. Medication Given: Time Medication Dose Units Route Findings: Stress Note * Resting ECG demonstrated normal sinus rhythm. * Rare PVCs noted prior to exam beginning. * Pharmacologic stress ECG is negative for ischemia at level of heart rate achieved. * No arrhythmias were noted during stress. * Patient had no chest pain during stress. * Normal hemodynamic responses to pharmacologic stress. Study Quality * Study quality is average. Gated EF % * Gated EF = 53%. Left Ventricle * The left ventricle is not dilated. LVEDV = 123 mL. NORMALS * Normal wall motion. Apical Perfusion Rest * The apex and adjacnet apical inferior, inferolateral, and inferoseptal segments show a moderate reduction in perfusion. Apical Perfusion Stress * The apex and adjacement apical inferior, inferolateral, and inferoseptal segments show a moderate reduction in perfusion. TID * No evidence of transient ischemic dilatation. TID ratio = 1.19. Lung Uptake * There is no evidence of increase lung uptake. Updated by Jeffrey Holguin DO, LETY, JUAN MANUEL TIRADO on 05/18/2016 12:31:27 PM electronically signed on 05/18/2016 12:32:24 PM with status of Final
--- NOTE | 2016-05-18 13:13 | ECHO - Doppler Report ---
Echocardiogram Name: Juanjo Rankin Date of Study: 05/18/2016 Date: 1945 Ht: 65.0 in Medical Record#: [id number] Age: 71 Wt: 203.0 lb Gender: Male BSA: 1.99 Order #: [id number] Location: [facility] Room #: [id number] Reading Physician: Jeffrey Holguin DO, LETY, JUAN MANUEL TIRADO Lead Massage Therapist: Gulshan Gray RN Ordering Physician: Gerardo Mccullough MD Primary Physician: [facility] Indications: Chest pain Impressions: LVEF 55-60%. Normal LV chamber size and function. Mild concentric left ventricular hypertrophy. Mild left ventricular diastolic dysfunction. Normal right ventricular structure and function. No evidence of pulmonary hypertension. No significant valvular dysfunction. Left Ventricular Wall Motion: Rest Echo Findings All wall segments showed normal motion. Findings: Study Quality * Technically adequate exam. ECG Findings * Sinus rhythm with PVCs. Left Ventricle * LVEF 55-60%. * Normal LV chamber size and function. * Mild concentric left ventricular hypertrophy. * Mild left ventricular diastolic dysfunction. Right Ventricle * Normal right ventricular structure and function. Left Atrium * Moderately dilated left atrium. Right Atrium * Normal right atrial size. Interatrial Septum * Interatrial septum not well evaluated. Aortic Valve * Trileaflet aortic valve. * Mildly sclerotic aortic valve leaflets. * No aortic regurgitation. * No aortic stenosis. Mitral Valve * Mildly thickened mitral valve leaflets. * Trace mitral regurgitation. * No mitral stenosis. Tricuspid Valve * Normal tricuspid valve structure and function. * Trace tricuspid regurgitation. * No evidence of pulmonary hypertension. Pulmonic Valve * Normal pulmonic valve structure and function. * No pulmonic regurgitation. Aorta * Normally sized aortic root. Pericardium * The pericardium appears normal. IVC * Normal IVC dimensions and inspiratory collapse. Pulmonary Artery * Normal visualized portions of the main pulmonary artery. History Hypertension Family History of CAD Measurements: BP: 135/ 82 2D Normal Values RVIDd: 2.70 cm <2.7 cm IVSd: 1.20 cm 0.6 - 1.0 cm LVIDd: 5.50 cm 3.7 - 5.6 cm LVPWd: 1.20 cm 0.6 - 1.1 cm LVIDs: 4.00 cm 1.5 - 3.6 cm LA: 4.50 cm 2.0 - 4.0cm %FS: 27.30 cm >25 % LVOT Diam: 2.00 cm LA volume: 65 Mitral Valve Peak E:.55 m/sec Peak A:.81 m/sec E/A Ratio:0.7 Peak E' Lat Beau:12.3 cm/s Peak E' Med Beau:4.19 cm/s E/E' Lat Ratio:4.5 E/E' Med Ratio:13.2 Tricuspid Valve TV Regurg Peak Grad: 29.00mmHg TV Regurg Peak Beau: 2.67m/sec Updated by Jeffrey Holguin DO, LETY, CELESTINO, JUAN MANUEL on 05/18/2016 1:05:24 PM electronically signed on 05/18/2016 1:08:57 PM with status of Final Wall Motion Lion: 1=Normal, 2=Hypokinesis, 3=Akinesis, 4=Dyskinesis, 5=Aneurysmal, 6=Hyperkinetic, X=Not Visualized (Blank)=Missing
--- NOTE | 2016-05-18 14:54 | Electrocardiograph Report ---
[place] [id number] Test Date: 2016-05-17 Pat Name: Juanjo Rankin Department: 104 Room: 3B Gender: M Pals Specialist: : 1945 Requested By: Gerardo Mccullough Order Number: [id number] Reading MD: Shanae Arce Measurements Intervals [place] Rate: 79 P: 30 VT: 212 QRS: -6 QRSD: 108 T: 44 QT: 378 QTc: 413 Interpretive Statements SINUS RHYTHM WITH FIRST DEGREE AV BLOCK WITH FREQUENT VENTRICULAR PREMATURE COMPLEXES Electronically Signed On 05-18-2016 14:52:32 EST by Shanae Arce
[2016-05-18 15:26] VITALS: BP 133/79
--- NOTE | 2016-05-18 15:55 | Discharge Summary ---
Date of Encounter: 05/18/16 Time of Encounter: 14:30 - Discharge Diagnosis (1) Chest pain Priority: Primary Status: Resolved Comments: Patient denied chest pain on day of discharge. Chest x-ray negative. Chest CT without acute processes. Troponins negative. Stress test negative. Echocardiogram unremarkable with ejection fraction 55-60% and mild diastolic dysfunction. Patient euvolemic on examination throughout this admission. ACS ruled out. He was seen by cardiology as telemetry revealed trigeminy and cardiology has recommended follow-up outpatient with the [facility]. No beta darya indicated at this time as the patient's heart rate has been in the 60s. Qualifiers: Chest pain type: unspecified Qualified Code(s): R07.9 - Chest pain, unspecified (2) Trigeminy Priority: Primary Status: Acute (3) Allergy to statin medication Priority: Secondary Status: Chronic (4) COPD (chronic obstructive pulmonary disease) Priority: Secondary Status: Chronic Comments: No acute exacerbation Qualifiers: COPD type: unspecified COPD Qualified Code(s): J44.9 - Chronic obstructive pulmonary disease, unspecified (5) Chronic respiratory failure with hypoxia Priority: Secondary Status: Chronic Comments: No increased need for oxygen (6) Dyslipidemia Priority: Secondary Status: Chronic Comments: Lipid panel unremarkable. Recommend low-cholesterol diet. Allergy to statin noted. Follow-up outpatient. (7) Former heavy cigarette smoker (20-39 per day) Priority: Secondary Status: Chronic (8) HTN (hypertension) Priority: Secondary Status: Chronic Comments: Uncontrolled upon admission. Patient not on any antihypertensive medications at home, started on losartan. Cardiology recommended against darya initiation. Follow-up outpatient. Normotensive at time of discharge. Qualifiers: Hypertension type: essential hypertension Qualified Code(s): I10 - Essential (primary) hypertension (9) Obesity (BMI 30-39.9) Priority: Secondary Status: Chronic (10) Pulmonary infiltrates Priority: Secondary Status: Chronic Comments: No acute processes. Patient denied shortness of breath above his normal throughout this admission. - Discharge Medications Prescriptions: Losartan [Cozaar] 25 mg PO DAILY #30 tablet Home Medications: Aspirin 81 mg PO Q48H 05/17/16 [History] Finasteride [Proscar] 5 mg PO DAILY 05/17/16 [History] Fluticasone Propionate Nasal [Flonase] 100 mcg NS BID PRN 05/17/16 [History] Ibuprofen [Motrin] 800 mg PO Q8HR PRN 05/17/16 [History] Lactase [Dairy Relief] 3,000 unit PO TIDAC 05/17/16 [History] Omeprazole [PriLOSEC] 20 mg PO BIDAC 05/17/16 [History] Tamsulosin [Flomax] 0.8 mg PO DAILY 05/17/16 [History] Losartan [Cozaar] 25 mg PO DAILY #30 tablet 05/18/16 [Rx] Allergies/Adverse Reactions: Allergies acetaminophen Allergy (Verified 05/17/16 18:17) Anaphylaxis Diclofenac Allergy (Verified 05/17/16 18:17) Anaphylaxis etodolac Allergy (Verified 05/17/16 18:17) Anaphylaxis guaifenesin Allergy (Verified 05/17/16 18:17) Anaphylaxis Influenza Virus Vaccines Allergy (Verified 05/17/16 18:17) Anaphylaxis lovastatin Allergy (Verified 05/17/16 18:17) Anaphylaxis morphine Allergy (Verified 05/17/16 18:17) Anaphylaxis simvastatin Allergy (Verified 05/17/16 18:17) Anaphylaxis trazodone Allergy (Verified 05/17/16 18:17) Anaphylaxis nitequil Allergy (Uncoded 05/17/16 18:17) Anaphylaxis Procedures/tests Complete & Pending: Procedures Performed prior 72 hours Category Date Time Status NM boyd perf SPECT multi [NM] Routine Exams 05/18/16 07:45 Taken SP pharm nuclear stress Routine Y 05/18/16 07:45 Completed Date of admission: 05/17/16 22:47 [facility] Consults: 05/18/16 07:48 Consult to Cardiology [CONS] Routine Comment: Consulting Provider: [facility] [place] Reason for Consult: cp r/o. trigemeny on telemetry Call Completed: No Discharging clinician: Marleni Munguia Anticipated date of discharge: 05/18/16 - Patient Status Disposition: Home, Self-Care Condition: Good Functional capacity at discharge: independent ambulation Overall status at discharge: patient is back to baseline - Discharge Instructions Follow Up With: [facility]Primary Care Provider[facility] - Additional Instructions: Follow-up with primary care provider in one to 2 weeks, check blood pressure daily and keep a log - Diet and Activity Activity: increase activity as tolerated Diet: low fat, low cholesterol, low salt diet Hospital course: Mr. Rankin is a 71 year old male with past medical history of COPD, hypertension, hyperlipidemia, BPH, GERD, statin allergy, former heavy tobacco abuse. Patient was transferred from the NH with chief complaint sudden onset of chest pain that was sharp and occurred while he was getting dressed on the morning of presentation. Patient stated the pain was located left anterior chest wall with radiation to lateral wall. He denied any diaphoresis, shortness of breath, palpitations, lightheadedness, nausea or vomiting. Patient stated the pain lasted 30 minutes after taking 4 baby aspirin. Pain was abated with Nitropaste. Workup in the emergency department unremarkable other than trigeminy noted on telemetry. Chest x-ray negative. Chest CT negative for acute processes. Patient was admitted to the hospitalist service for further evaluation and management. Echocardiogram unremarkable with ejection fraction 55-60% and mild diastolic dysfunction. Patient euvolemic on examination throughout this admission. Troponins negative. Nuclear stress test negative for ischemia or infarct. ACS ruled out. Patient denied chest pain throughout this admission. He also denied shortness of breath above his norm. He was noted to not be on any antihypertensive medications at home and he was started on losartan and was normotensive on day of discharge. Telemetry with trigeminy noted and cardiology was brought on board. Recommended against initiation of beta darya given that his heart rate was in the 60s. Cardiology cleared the patient for outpatient follow-up. He was discharged home in stable condition with close outpatient follow-up recommended. ITS Impressions Chest X-Ray 05/17/16 18:46 IMPRESSION: No acute process. D/ / Marco Cruz MD / Marco Cruz MD Interpreting Provider: Marco Cruz MD Chest CT 05/17/16 19:46 IMPRESSION: 1. No acute cardiopulmonary abnormality. 2. Scattered coronary artery calcifications. 3. Chronic calcified granulomatous changes. 4. Diffuse hepatic steatosis. D/ / Herbert Goodwin MD / Herbert Goodwin MD Interpreting Provider: Herbert Goodwin MD Echocardiogram impressions: LVEF 55-60%. Normal LV chamber size and function. Mild concentric left ventricular hypertrophy. Mild left ventricular diastolic dysfunction. Normal right ventricular structure and function. No evidence of pulmonary hypertension. No significant valvular dysfunction. Nuclear stress test impression: Pharmacologic stress ECG is negative for ischemia at level of heart rate achieved. Hoda ejection fraction equals 53%. Small size, moderate intensity, fixed apex, apical inferior, apical lateral, and apical septal defect consistent with artifact. Perfusion imaging was negative for ischemia or infarct. - Time Spent with Patient Total time spent providing and/or coordinating discharge services: - Constitutional Vitals: Temp Pulse Resp BP Pulse Ox 98.0 F 75 15 133/79 94 L 05/18/16 15:25 05/18/16 15:25 05/18/16 15:25 05/18/16 15:25 05/18/16 15:25 General appearance: Present: cooperative, A&O X 3, pleasant, no acute distress, obese, answers questions appropriately - Head Head exam: Present: atraumatic, normocephalic - Eye Eye exam: Present: PERRL, conjuntiva pink, sclera anicteric Pupils: Present: PERRL - Neck Neck exam general surgery: Present: supple, trachea midline. Absent: lymphadenopathy - Respiratory Respiratory exam: Present: CTAB. Absent: accessory muscle use, rales, respiratory distress, rhonchi, wheezes - Cardiovascular Cardiovascular exam: Present: RRR, +S1, +S2. Absent: diastolic murmur, gallop, rubs, systolic murmur - GI/Abdominal GI/Abdominal exam: Present: normal bowel sounds, soft, no peritoneal signs. Absent: distended, tenderness - Extremities Exam Extremities exam: Present: warm, radial pulses palpable and symetrical. Absent : calf tenderness, cyanotic, pedal edema - Neurological Exam Neurological exam: Present: alert, CN II-XII intact, normal gait, oriented X3, no focal deficits, strengths equal and symetr throughout. Absent: pronater drift, facial droop, speech deficit - Skin Skin exam: Present: dry, intact, normal color, warm
== END 2016-05-18 16:31 | disposition home or self-care (01) | DRG 313 ==
LOC: EMEROO 18:14 → 3BNU 18:14
PROVIDERS: ADMIT Nurse Practitioner Family; ATTEND Nurse Practitioner Family